=== PATIENT | female | born 1995 | race Hispanic/Latino ===

== ENCOUNTER 2020-08-12 04:00 | Emergency (ER) | payer OTHER, SELFPAY ==
--- NOTE | ~2020-08-12 | CT_ITS ---
EXAMINATION: CT abdomen pelvis w con DATE: 08/12/2020 05:07 INDICATION: Periumbilical abdominal pain TECHNIQUE: Computed tomography (CT) of the abdomen and pelvis was performed with 100 cc Omnipaque 350 intravenous contrast. Automated exposure control and iterative reconstruction technique were employe d. Exam dose: 710.74 mGy-cm total exam DLP. COMPARISON: None. FINDINGS: Minimal dependent atelectasis at the lung bases. Normal heart size. No pericardial or pleural effusion. The liver, gallbladder, bile ducts, spleen, pancreas, pancreatic duct, and adrenal glands and kidneys appear normal. No urinary tract calculus or hydroureteronephrosis. Retroflexed uterus. Uterus, adnex al areas and urinary bladder appear otherwise normal. Normal caliber of the abdominal aorta. No intraperitoneal or retroperitoneal or pelvic mass lesion or adenopathy or ascites. Normal appendix. No bowel obstruction, bowel wall thickening, pneumatosis or intraperitoneal free air . Included skeletal structures are unremarkable. IMPRESSION: No significant abnormality Reviewed, dictated and finalized at [facility]. Reviewed, dictated and finalized at [facility]. THINNER IMPRESSION: No significant abnormality
[2020-08-12 04:02] VITALS: BP 121/80; PULSE 81; RESP 18; TEMP 36.1; O2SAT 100
--- NOTE | 2020-08-12 04:11 | ED.ABDPAIN ---
HPI - Abdominal Pain General Chief Complaint: Abdominal Pain Stated Complaint: abd pain x 1 day Time Seen by Provider: 08/12/20 04:05 Source: RN notes reviewed History of Present Illness HPI narrative: Patient presents to emergency department from home for abdominal pain. Patient states pain began 5 hours ago. States the pain is located in the upper abdomen above the bellybutton and does not radiate described as sharp and stabbing denies any fevers or chills chest pain shortness of breath nausea vomiting diarrhea or any other symptoms states she took Tylenol at home with pain first began with minimal relief denies any other symptoms at this time Related Data Home Medications Medication Instructions Recorded Confirmed fluoxetine mg 08/12/20 fluticasone propionate INTRANASAL 08/12/20 loratadine mg 08/12/20 topiramate 08/12/20 Allergies Allergy/AdvReac Type Severity Reaction Status Date / Time ibuprofen Allergy Severe Hives / Verified 08/12/20 04:05 Red Face Review of Systems Review of Systems: Narrative: Gen.: Denies fevers or chills ENT: Denies congestion Respiratory: Denies shortness of breath or cough CV: Denies chest pain or palpitations GI: See HPI denies burning, urgency, frequency or hematuria Musculoskeletal: Denies back pain or muscle pain Neuro: Denies numbness, tingling, weakness or focal weakness Skin: Denies rash Except as documented, all other systems reviewed and negative [facility] Past Medical History Medical History (Updated 08/12/20 @ 06:55 by Mikael Acosta DO) Patient denies significant medical history Social History Social History (Updated 08/12/20 @ 04:12 by Mikael Acosta DO) Smoking status: Never smoker Gender identity (if verbalized by the patient): Female Sexual Orientation (if Verbalized by the Patient): Straight or Heterosexual Exam Narrative: Exam Narrative: APPEARANCE: No acute distress, nontoxic, resting in bed HEENT: Normocephalic, atraumatic, OMM RESPIRATORY: No respiratory distress, clear to auscultation bilaterally with no rhonchi wheezing or rales CARDIOVASCULAR: RRR s murmur ABDOMINAL: Soft nondistended tender palpation in epigastric and right upper quadrant no tenderness left upper quadrant left lower quadrant and right lower quadrant no rebound or guarding MUSCULOSKELETAl: Moves all extremities. No clubbing, cyanosis or edema. NEURO: Awake and alert. Following commands, speech normal, no focal deficits SKIN:: Warm, dry. Normal Color PSYCHIATRIC: Normal affect/mood Course Course Emergency Course: Patient states that they are feeling much better at this time. States abdominal pain has improved. Repeat abdominal exam shows the patient's abdomen to be soft with no surgical abdomen present.. Discussed with patient results of workup and diagnosis. Discussed need for follow-up with primary care physician, reasons to return to the emergency department in proper use of medication. Patient understands and agrees to current treatment plan Vital Signs Vital signs: Vital Signs Temperature 96.9 F L 08/12/20 04:02 Pulse Rate 81 08/12/20 04:02 Respiratory Rate 18 08/12/20 04:02 Blood Pressure 121/80 08/12/20 04:02 Pulse Oximetry 100 08/12/20 04:02 Temperature 96.9 F L 08/12/20 04:02 Pulse Rate 67 08/12/20 06:52 Respiratory Rate 18 08/12/20 06:52 Blood Pressure 103/65 08/12/20 06:52 Pulse Oximetry 10 L 08/12/20 06:52 MDM - Abdominal Pain MDM Narrative Medical decision making narrative: Patient's abdomen is soft without significant pain or signs of surgical abdomen on serial exams. Lab and x-ray evaluations are reviewed and patient is felt to be a reasonable candidate for outpatient management. Patient was instructed as to limitations of x-ray and laboratory evaluation and encouraged to return to ED or primary physician for repeat exam in 12 hours if continued or worsening pain Lab Data Result diagrams: 08/12/20 04:24
[2020-08-12 04:28] LABS: Basophils Percent Auto 0.3 % (0.2-1.2); Eosinophils Percent Auto 0.6 % (0-4.4); Hematocrit 40.2 % (37.0-47.0); Hemoglobin 13.3 g/dL (12.0-15.0); Immature Granulocyte Absolute 0.02 K/mm3 (0.00-0.031); Immature Granulocyte Percent A 0.3 % (0-0.5); Lymphocytes Absolute Auto 2.49 K/mm3 (0.9-3.2); Lymphocytes Percent Auto 35.5 % (18.3-44.2); Mean Corpuscular HGB Conc 33.1 g/dl (32-36); Mean Corpuscular Hemoglobin 29.2 pg (26-34); Mean Corpuscular Volume 88.4 fl (80-100); Mean Platelet Volume 11.6 fl (7.4-10.4); Monocytes Absolute Auto 0.5 K/mm3 (0.1-0.6); Monocytes Percent Auto 7.4 % (2.6-8.5); Neutrophils Absolute Auto 3.9 K/mm3 (1.3-6.7); Neutrophils Percent Auto 55.9 % (45.5-73.1); Platelet Count Result 239 k/mm3 (150-375); Red Blood Count 4.55 M/mm3 (4.2-5.4); Red Cell Distribution Width 13.9 % (11.5-14.5)
[2020-08-12] MEDS: SODIUM CHLORIDE 0.9% IV 1,000 ML 999 ML IV CONT (04:38)
[2020-08-12] MEDS: MORPHINE SULFATE (*CRX) 4 MG/ML INJ 2 MG IV PUSH (04:39)
[2020-08-12 04:41] LABS: Alanine Aminotransferase 19 U/L (4-35); Albumin Level 4.2 g/dL (3.5-5.1); Alkaline Phosphatase 96 U/L (38-126); Anion Gap 7 mmol/L (8-16); Aspartate Amino Transferase 23 U/L (14-36); Bilirubin,Total 0.3 mg/dL (0.2-1.3); Blood Urea Nitrogen 10 mg/dL (7-17); Calcium 8.6 mg/dL (8.4-10.2); Carbon Dioxide 24 mmol/L (22-30); Chloride 109 mmol/L (98-107); Estimated CRCL calculation 109 ml/min; Estimated Glomerular Filt Rate > 60; Glucose 95 mg/dL (65-105); Lipase 67 U/L (23-300); Sodium 140 mmol/L (137-145)
[2020-08-12 05:55] VITALS: BP 112/70; PULSE 80; RESP 20; O2SAT 100
[2020-08-12 06:17] LABS: Add Urine Microscopic? YES; Appearance Urine Clear (Clear); Bacteria Urine Trace /hpf; Bilirubin Urine Negative (Negative); Blood Urine 1+ (Negative); Color Urine Yellow (Yellow); Glucose Urine UA Negative (Negative); Ketones Urine Negative (Negative); Leukocyte Esterase Ur Negative LEU/UL (Negative); Mucus Urine Rare /lpf; Nitrate Urine Negative (Negative); Protein Urine Negative (Negative); RBC Urine 0-2 /hpf (0-2); Squamous Epithelial Cell Urine Occasional /hpf (Few); Urobilinogen Urine Negative mg/dL (<2.0); WBC Urine 0-3 /hpf
[2020-08-12 06:18] LABS: Specific Grav Ur > 1.060 (1.001-1.035)
[2020-08-12] MEDS: FAMOTIDINE 20 MG/2 ML VIAL IV PUSH (06:26)
[2020-08-12 06:52] VITALS: BP 103/65; PULSE 67; RESP 18; O2SAT 10
== END 2020-08-12 07:05 | disposition home or self-care (01) ==
PROVIDERS: Emergency Provider Emergency Medicine; PCP Registered Nurse
DX: R10.11 Right upper quadrant pain (principal)
CPT/HCPCS: 36415; 74177; 80053; 81001; 81025; 83690; 85025; 96361; 96365; 96375; 99284; A9270; J0131; J2270; J7030; Q9967

== ENCOUNTER 2021-07-17 09:20 | Emergency (ER) | payer OTHER, SELFPAY ==
--- NOTE | 2021-07-17 09:23 | ED.URI ---
HPI - URI/Sore Throat General Chief Complaint: Upper Respiratory Infection Stated Complaint: Sore Throat Time Seen by Provider: 07/17/21 09:30 Source: patient, family, RN notes reviewed and old records reviewed Mode of arrival: ambulatory Limitations: no limitations History of Present Illness HPI Narrative: 25-year-old female presents to the [facility] with complaints of a sore throat since yesterday. Patient Has taken Tylenol Denies fevers. No chest pain or shortness of breath. Related Data Home Medications Medication Instructions Recorded Confirmed fluoxetine mg 08/12/20 fluticasone propionate INTRANASAL 08/12/20 loratadine mg 08/12/20 topiramate 08/12/20 Allergies Allergy/AdvReac Type Severity Reaction Status Date / Time ibuprofen Allergy Severe Hives / Verified 08/12/20 04:05 Red Face Review of Systems Review of Systems: All systems reviewed & are unremarkable except as noted in HPI and below Constitutional: Constitutional: Reports no additional constitutional complaints, Denies chills, Denies fever(s) and Denies headache(s) Eyes: Eyes: Reports no additional eye complaints ENT: Reports as per HPI, Denies vertigo, Denies dizziness, Denies headache(s), Denies nasal congestion and Reports sore throat Cardiovascular: Cardiovascular: Reports no additional cardiovascular complaints, Denies chest pain, Denies syncope, Denies rapid heart rate and Denies dyspnea Respiratory: Respiratory: Reports no additional respiratory complaints, Denies cough, Denies dyspnea and Denies wheezing Gastrointestinal: Gastrointestinal: Reports no additional gastrointestinal complaints, Denies abdominal pain, Denies diarrhea, Denies nausea and Denies vomiting Musculoskeletal: Musculoskeletal: Reports no additional musculoskeletal complaints and Denies numbness Integumentary/Breasts: Skin/Breast: Reports system reviewed and no additional complaints, except as docu Neurologic: Reports system reviewed and no additional complaints, except as documented, Denies vertigo, Denies dizziness, Denies syncope, Denies headache(s), Denies focal weakness and Denies numbness Psychiatric: Psychiatric: Reports no additional psychiatric complaints Allergic/Immunologic: Allergic/Immunologic: Reports no additional allergic/immunologic complaints and Denies wheezing PMFSH Past Medical History Medical History Patient denies significant medical history Social History Social History Smoking status: Never smoker Gender identity (if verbalized by the patient): Female Sexual Orientation (if Verbalized by the Patient): Straight or Heterosexual Comments At the time of my signature, I reviewed and agree with the nursing past medical, surgical, social, and family history. There is no relevant family history pertinent to the patient complaint. Exam Const: General: cooperative, healthy appearing, no acute distress, well developed and alert Nutritional Appearance: well nourished Orientation/consciousness: patient oriented x3 Limitations: no limitations HENMT: Head: normal to inspection Ears: external ears normal, TM's normal bilaterally and EAC's normal General nose exam: Normal external nose present and Normal nasal mucous membranes and turbinates present Face and sinus: normal facial exam Mouth: Yes Normal oral and palatal mucosa present and Yes moist mucous membranes Throat: posterior oropharynx normal, tonsils normal and uvula midline Eyes: Conjunctivae: conjunctivae normal Pupils: Equal, round and reactive pupils present Neck: Neck: normal visual inspection, no lymphadenopathy and no meningeal signs Chest: Chest palpation & inspection: normal inspection of the chest Resp: Effort & Inspection: normal respiratory effort and no use of accessory muscles Auscultation: clear to auscultation bilaterally, no crackles, no rales, no rhonchi and no w
[2021-07-17 09:29] VITALS: BP 115/61; PULSE 84; RESP 16; TEMP 36.4; O2SAT 100
[2021-07-17 10:40] VITALS: BP 115/61; PULSE 100; RESP 16; TEMP 36.4; O2SAT 100
[2021-07-18 17:56] LABS: SARS-CoV-2 RNA PCR Negative
== END 2021-07-17 09:55 | disposition home or self-care (01) ==
PROVIDERS: Emergency Provider Nurse Practitioner; PCP Registered Nurse
DX: J02.9 Acute pharyngitis, unspecified (principal); Z20.822 Contact with and (suspected) exposure to COVID-19
CPT/HCPCS: 87081; 87880; 99213; C9803; G0463; U0003; U0005

== ENCOUNTER 2021-07-23 09:15 | Emergency (ER) | payer OTHER, SELFPAY ==
[2021-07-23 09:28] VITALS: BP 101/66; PULSE 69; RESP 18; TEMP 36.6; O2SAT 100
[2021-07-23 09:39] VITALS: BP 101/66; PULSE 69; RESP 18; TEMP 36.6; O2SAT 100
--- NOTE | 2021-07-23 10:03 | ED.EAR ---
HPI - Ear Problem General Chief complaint: Ear Stated complaint: Ear Pain Time Seen by Provider: 07/23/21 09:57 Source: patient and RN notes reviewed Mode of arrival: ambulatory Limitations: no limitations History of Present Illness HPI Narrative: Patient presents today complaining of a 3-day history of bilateral ear pain, right greater than left. She also reports muffled hearing in the left side. Reports URI symptoms last week that have mostly resolved. She currently rates her pain 9/10 which is intermittent. She has been taking Tylenol without much relief. MD Complaint: ear pain and decreased hearing Related Data Home Medications Medication Instructions Recorded Confirmed fluoxetine 40 mg DIRECTED 08/12/20 07/23/21 fluticasone propionate 50 mcg INTRANASAL DIRECTED 08/12/20 07/23/21 loratadine 10 mg DAILY 08/12/20 07/23/21 topiramate 50 mg DIRECTED 08/12/20 07/23/21 Allergies Allergy/AdvReac Type Severity Reaction Status Date / Time ibuprofen Allergy Severe Hives / Verified 08/12/20 04:05 Red Face Review of Systems Review of Systems: CONSTITUTIONAL: Denies body aches, fever, chills, or sweats. EYES: Denies visual changes, redness, or discharge. ENT: Denies rhinorrhea, congestion, sore throat. + Ear pain, muffled hearing CARDIOVASCULAR: Denies chest pain, palpitations, or edema. RESPIRATORY: Denies cough or dyspnea. GASTROINTESTINAL: Denies abdominal pain, nausea, vomiting, or diarrhea. GENITOURINARY: Denies dysuria or hematuria. SKIN: Denies rash, itching, or wounds. MUSCULOSKELETAL: Denies back pain, joint pain, or myalgia. NEUROLOGIC: Denies headache, numbness, tingling, or weakness. PSYCH: Denies depression or anxiety. [facility] Past Medical History Medical History Patient denies significant medical history Social History Social History Smoking status: Never smoker Gender identity (if verbalized by the patient): Female Sexual Orientation (if Verbalized by the Patient): Straight or Heterosexual Comments At time of signature, I have reviewed and agree with nursing past medical, surgical, social and family history unless otherwise noted. Please see nursing chart for further information. There is no relevant family history pertinent to the presenting complaint Exam Narrative: GENERAL: Well-appearing, well-nourished, and in no acute distress. HEAD: Normocephalic, atraumatic. EYES: EOMI. No redness or drainage. Conjunctivae normal. ENT: Mucous membranes pink and moist. Nares clear. No rhinorrhea. Left-sided middle ear effusion. Right TM bulging and erythematous with purulent material. NECK: Normal AROM. Supple. No lymphadenopathy. CHEST: No respiratory distress. EXTREMITIES: Normal range of motion. No edema. SKIN: Warm, dry, no rash. Capillary refill normal. Normal skin turgor. NEURO: No focal deficits. Alert and oriented x3. Gait steady. PSYCH: Normal affect. No signs of depression or anxiety. Course Course Level of Care: Express Care Visit Vital Signs Vital signs: Vital Signs Temperature 97.8 F 07/23/21 09:28 Pulse Rate 69 07/23/21 09:28 Respiratory Rate 18 07/23/21 09:28 Blood Pressure 101/66 07/23/21 09:28 Pulse Oximetry 100 07/23/21 09:28 Temperature 97.8 F 07/23/21 09:39 Pulse Rate 69 07/23/21 09:39 Respiratory Rate 18 07/23/21 09:39 Blood Pressure 101/66 07/23/21 09:39 Pulse Oximetry 100 07/23/21 09:39 Reviewed Medical Decision Making Differential Diagnosis Differential Diagnosis: Otitis media, otitis externa, ruptured TM, serous otitis, eustachian tube dysfunction, cerumen impaction Vital Signs Vital Signs: Vital Signs Temperature 97.8 F 07/23/21 09:28 Pulse Rate 69 07/23/21 09:28 Respiratory Rate 18 07/23/21 09:28 Blood Pressure 101/66 07/23/21 09:28 Pulse Oximetry 100 07/23/21 09:
== END 2021-07-23 10:13 | disposition home or self-care (01) ==
PROVIDERS: Emergency Provider Nurse Practitioner; PCP Registered Nurse
DX: H66.001 Acute suppurative otitis media without spontaneous rupture of ear drum, right ear (principal); H65.02 Acute serous otitis media, left ear
CPT/HCPCS: 99213; G0463

== ENCOUNTER 2021-09-25 16:07 | Outpatient (CLI) | payer OTHER, SELFPAY ==
--- NOTE | ~2021-09-25 | US_ITS ---
EXAMINATION: US pelvic complete w TV DATE: 09/25/2021 16:59 INDICATION: PELVIC AND PERINEAL PAIN TECHNIQUE: Multiple transabdominal and endovaginal sonographic images of the pelvis were obtained. COMPARISON: 06/12/2018. FINDINGS: Uterus: 6.4 x 4.5 x 3.3 cm. Retroverted uterus. Endometrial complex measures 0.7 cm. Right Ovary: 4.0 x 1.9 x 1.9 cm. Vascular flow is present. Left Ovary: 3.3 x 2.8 x 1.9 cm. Vascular flow is present. There is small volume physiologic free fluid in the pelvis. IMPRESSION: 1. Normal pelvic sonogram findings. Reviewed, dictated and finalized at [facility].
== END 2021-09-25 16:08 | disposition home or self-care (01) ==
LOC: ANHIMG 16:08
PROVIDERS: PCP Registered Nurse; Visit Provider Registered Nurse
DX: R10.2 Pelvic and perineal pain (principal)
CPT/HCPCS: 76830; 76856

== ENCOUNTER 2024-09-08 09:27 | Outpatient (CLI) | payer OTHER, SELFPAY ==
[2024-09-08 10:16] LABS: Basophils Percent Auto 0.6 % (0.2-1.2); Eosinophils Percent Auto 0.6 % (0-4.4); Hematocrit 45.1 % (37.0-47.0); Hemoglobin 14.3 g/dL (12.0-15.0); Immature Granulocyte Absolute 0.01 K/mm3 (0.00-0.031); Immature Granulocyte Percent A 0.2 % (0-0.5); Lymphocytes Percent Auto 36.8 % (18.3-44.2); Mean Corpuscular HGB Conc 31.7 g/dl (32-36); Mean Corpuscular Hemoglobin 28.3 pg (26-34); Mean Corpuscular Volume 89.1 fl (80-100); Mean Platelet Volume 11.7 fl (7.4-10.4); Monocytes Absolute Auto 0.3 K/mm3 (0.1-0.6); Monocytes Percent Auto 5.7 % (2.6-8.5); Neutrophils Absolute Auto 3.1 K/mm3 (1.3-6.7); Neutrophils Percent Auto 56.1 % (45.5-73.1); Platelet Count Result 241 k/mm3 (150-375); Red Blood Count 5.06 M/mm3 (4.2-5.4); Red Cell Distribution Width 13.5 % (11.5-14.5); White Blood Count 5.4 K/mm3 (4.5-10.0)
--- OUTSIDE RECORDS SUMMARY | 2024-09-08 10:17 | XMS_ITS | Clinical Summary ---
Author Organization [facility] Address [address] [place] [address] Care Team Providers Care Storage Consultant Name Role Phone PeaceMichellemis MILL FEEDER-DESK OFFICER Primary Care Pro vider Source Comments [facility],non-owned Affiliates and Associated Physician Practices is amultiple site organization consisting of ambulatory clinics and hospital sitesin [place], [place], [place] and [place]. This disclosure is being madepursuant to the Care Everywhere program and may not contain all information available regarding this patient. Last updated 18.[facility] Allergies Active Allergy Reactions Criticality Noted Date Comments Ibuprofen Other 10/05/2013 hives Medications * Be aware that medications may not be up to date on this document. Alwaysverify current medications with the patient. Medication Sig Dispensed Refills Start Date End Date Status FLUoxetine (PROZAC) 40 MG capsule 06/18/2019 Active fluticasone propionate (FLONASE) 50 MCG/ACT nasal spray 06/18/2019 Active topiramate (TOPAMAX) 50 MG tabletIndications:Mi graine with aura and without status migrainosus, not intractable One pill = 50 mg in am and 2 [id number] mg at night for migraines 90 tablet 5 08/06/2019 Active SUMAtriptan (IMITREX) 50 MG tabletIndications:Mi graine with aura and without status migrainosus, not intractable 1 tablet at the onset of migraine; may repeat after 2 hours once in a 24 hour period if needed 9 tablet 3 08/06/2019 Active Active Problems Problem Noted Date Diagnosed Date Ingrown toenail 10/05/2013 Family History Medical History Relation Name Comments Hyperlipidemia Father Depression Mother Hyperlipidemia Mother Hypertension Mother Migraine Mother Migraine Sister Relation Name Status Comments Father Alive Mother Alive Sister Alive Social History Tobacco Use Types Packs/Day Years Used Date Smoking Tobacco: Never Smokeless Tobacco: Never Alcohol Use Standard Drinks/Week Comments Yes 0 (1 standard drink = 0.6 oz pur e alcohol) occasionally Sex and Gender Information Value Date Recorded Sex Assigned at Not on file Gender Identity Not on file Sexual Orientation Not on file Last Filed Vital Signs Vital Sign Reading Time Taken Comments Blood Pressure 118/72 08/06/2019 10:40 AM ICE GUARD INSPECTOR Pulse 82 08/06/2019 10:40 AM ICE GUARD INSPECTOR Temperature 36.9 C (98.4 F) 12/01/2015 12:45 AM CDT Respiratory Rate 24 12/01/2015 12:45 AM CDT Oxygen Saturation 98% 07/22/2015 10:20 PM ICE GUARD INSPECTOR Inhaled Oxygen Concentration - - Weight 86.2 kg (190 lb) 08/06/2019 10:40 AM ICE GUARD INSPECTOR Height 154.9 cm (5' 1 ) 08/06/2019 10:40 AM ICE GUARD INSPECTOR Body Mass Index 35.9 08/06/2019 10:40 AM ICE GUARD INSPECTOR Plan of Treatment Health Maintenance Due Date Last Done Comments PAP SMEAR 1996 HIV SCREENING 10/03/2011 HEPATITIS C SCREENING 09/28/2014 DTAP/TDAP/TD VACCINES (1 - Tdap) 10/03/2015 HEPATITIS B VACCINE (1 of 3 - 19+ 3-dose series) 10/03/2015 COVID-19 VACCINE (2023-2 5 season) 2024 INFLUENZA VACCINE (#1) 2024 DEPRESSION SCREENING 06/16/2024 ZOSTER VACCINE (1 of 2) 2046 HIB VACCINE Aged Out No longer eligi ble based on patient's age to complete this topic HPV VACCINE Aged Out No longer eligi ble based on patient's age to complete this topic MENINGOCOCCAL (Group B) VACC INE SHARED DECISION-MAKING Aged Out No longer eligibl e based on patient's age to complete this topic MENINGOCOCCAL GROUPS A/C/Y/W VACCINE Aged Out No longer eligible b ased on patient's age to complete this topic PNEUMOCOCCAL VACCINE Aged Out No long er eligible based on patient's age to complete this topic Care Teams Storage Consultant Relationship Specialty Start Date End Date Michelle Hand APRN-BRAYDON [address] [id number] PCP - General 08/06/19
[2024-09-08 10:23] LABS: Cholesterol 196 mg/dL (0-200); HDL Direct 45 mg/dL; Hemoglobin A1C 5.3 % (<5.7); Triglycerides 96 mg/dL (<150)
[2024-09-08 10:33] LABS: LDL Cholesterol Direct 115 mg/dL
[2024-09-08 10:35] LABS: Iron 96 ug/dL (37-170)
[2024-09-08 10:46] LABS: Beta HCG Quantitative < 2.39 mIU/ML
[2024-09-08 10:46] LABS: Percent Iron Saturation 23 % (20-50)
[2024-09-09 14:09] LABS: FSH 5.3 mIU/mL
[2024-09-11 14:34] LABS: Anti Mullerian Hormone,Female 6.08 ng/mL (0.69-13.39)
== END 2024-09-08 09:28 | disposition home or self-care (01) ==
LOC: ANHLAB 09:30
PROVIDERS: PCP Registered Nurse; Visit Provider Obstetrics & Gynecology
DX: L68.0 Hirsutism (principal); N92.6 Irregular menstruation, unspecified; E66.01 Morbid (severe) obesity due to excess calories
CPT/HCPCS: 36415; 80061; 82627; 82670; 82728; 83001; 83036; 83498; 83525; 83527; 83540; 83550; 84144; 84146; 84402; 84403; 84443; 84702; 85025

== ENCOUNTER 2024-12-18 08:51 | Outpatient (CLI) | payer OTHER, SELFPAY ==
[2024-12-18 10:30] LABS: Hematocrit 37.8 % (37.0-47.0); Hemoglobin 12.5 g/dL (12.0-15.0); Immature Granulocyte Percent A 0.3 % (0-0.5); Lymphocytes Absolute Auto 1.65 K/mm3 (0.9-3.2); Mean Corpuscular HGB Conc 33.1 g/dl (32-36); Mean Corpuscular Hemoglobin 29.5 pg (26-34); Mean Corpuscular Volume 89.2 fl (80-100); Nucleated Red Blood Cells Absolute Auto 0.000 K/mm3 (0.0-0.012); Nucleated Red Blood Cells Perc 0.0 % (0.0-0.2); Platelet Count Result 212 k/mm3 (150-375); Red Blood Count 4.24 M/mm3 (4.2-5.4); White Blood Count 7.2 K/mm3 (4.5-10.0)
[2024-12-18 10:39] LABS: Glucose 1 Hour PP 50gm Dose 80 mg/dL
[2024-12-18 11:21] LABS: HIV 1/2 Ab P24 Ag Result Negative (Negative)
[2024-12-18 11:23] LABS: Hepatitis B Surface Antigen Negative (Negative)
[2024-12-18 11:41] LABS: Beta HCG Quantitative 59362.00 mIU/ML
[2024-12-20 16:33] LABS: CMV IgG Antibody. 9.90 U/mL
== END 2024-12-18 08:52 | disposition home or self-care (01) ==
LOC: ANHLAB 08:55
PROVIDERS: PCP Registered Nurse; Visit Provider Obstetrics & Gynecology
DX: N91.2 Amenorrhea, unspecified (principal); Z20.6 Contact with and (suspected) exposure to human immunodeficiency virus [HIV]
CPT/HCPCS: 36415; 82947; 84702; 85025; 86644; 86703; 86762; 86850; 86900; 86901; 87086; 87340; G0432

== ENCOUNTER 2024-12-28 15:07 | Outpatient (CLI) | payer OTHER, SELFPAY ==
--- NOTE | ~2024-12-28 | US_ITS ---
Pelvic ultrasound. Clinical History: First trimester , establish dates and viability Technique: Realtime transabdominal and transvaginal scanning of the pelvis was performed. Color flow Doppler and Doppler spectral analysis were performed. Findings: The uterus is anteverted, and contains an intrauterine gestation. [place]-rump length of 5.6 cm corresponds to estimated gestational age of 12 weeks 2 days. heart rate is 151 bpm. Placenta anteriorly located. Possible oligohydramnios. Neither ovary is seen. No adnexal mass seen.. There is no evidence of free fluid in the cul de sac. Impression: Live intrauterine gestation, with estimated gestational age of 12 weeks 2 days. heart rate is 1 51 bpm. Possible oligohydramnios. Reviewed, dictated and finalized at location . Impression: Live intrauterine gestation, with estimated gestational age of 12 weeks 2 days. heart rate is 151 bpm. Possible oligohydramnios.
== END 2024-12-28 15:08 | disposition home or self-care (01) ==
LOC: GOSHIMG 15:07
PROVIDERS: PCP Obstetrics & Gynecology; Visit Provider Obstetrics & Gynecology
DX: Z34.90 Encounter for supervision of normal pregnancy, unspecified, unspecified trimester (principal)
CPT/HCPCS: 76801

== ENCOUNTER 2025-03-05 09:36 | Outpatient (CLI) | payer OTHER, SELFPAY ==
[2025-03-05 10:36] LABS: Syphilis IgG/IgM Antibody Non-Reactive (Nonreactive)
[2025-03-06 07:08] LABS: Varicella-Zoster Ab, IgG Reactive (Non Reactive)
[2025-03-09 11:08] LABS: Parvovirus B19, IgG 0.2 index (0.0-0.8); Parvovirus B19, IgM 0.2 index (0.0-0.8)
== END 2025-03-05 09:37 | disposition home or self-care (01) ==
PROVIDERS: PCP Registered Nurse; Visit Provider Obstetrics & Gynecology
DX: Z34.90 Encounter for supervision of normal pregnancy, unspecified, unspecified trimester (principal)
CPT/HCPCS: 36415; 86593; 86747; 86787

== ENCOUNTER 2025-04-16 09:22 | Outpatient (CLI) | payer OTHER, SELFPAY ==
[2025-04-16 11:08] LABS: Hematocrit 34.2 % (37.0-47.0); Hemoglobin 11.4 g/dL (12.0-15.0); Mean Corpuscular HGB Conc 33.3 g/dl (32-36); Mean Corpuscular Hemoglobin 30.0 pg (26-34); Mean Corpuscular Volume 90.0 fl (80-100); Platelet Count Result 230 k/mm3 (150-375); Red Blood Count 3.80 M/mm3 (4.2-5.4); White Blood Count 10.1 K/mm3 (4.5-10.0)
[2025-04-16 11:21] LABS: Glucose 1 Hour PP 50gm Dose 86 mg/dL
[2025-04-16 11:49] LABS: Syphilis IgG/IgM Antibody Non-Reactive (Nonreactive)
[2025-04-16 12:21] LABS: HIV 1/2 Ab P24 Ag Result Negative (Negative)
== END 2025-04-16 09:23 | disposition home or self-care (01) ==
LOC: ANHLAB 09:24
PROVIDERS: PCP Registered Nurse; Visit Provider Student in an Organized Health Care Education/Training Program
DX: Z34.90 Encounter for supervision of normal pregnancy, unspecified, unspecified trimester (principal)
CPT/HCPCS: 36415; 82947; 85027; 86593; 86703; G0432